=== PATIENT | male | born 1950 | race Caucasian/White ===

== ENCOUNTER → 2016-12-22 | Outpatient (CLI) | payer MEDICARE ==
[2016-12-22 09:09] LABS: HEMOGLOBIN 15.1 g/dL (14.1-18.0); LYMPH # 1.2 K/mm3 (0.7-4.5)
[2016-12-22 10:44] LABS: BILIRUBIN, INDIRECT 0.65 mg/dL (0-0.9); BUN 16 mg/dL (7-18); GFR (ESTIMATED) 85 ML/MIN (>60); PROSTATE-SPECIFIC AG SCREEEN 1.1 ng/mL (0.0-4.0)
== END ==
LOC: LAB 08:47
DX: E11.9 Type 2 diabetes mellitus without complications (principal); M15.0 Primary generalized (osteo)arthritis; N40.0 Benign prostatic hyperplasia without lower urinary tract symptoms; Z12.5 Encounter for screening for malignant neoplasm of prostate; E55.9 Vitamin D deficiency, unspecified
CPT/HCPCS: G0103

== ENCOUNTER → 2017-02-12 | Outpatient (CLI) | payer MEDICARE ==
--- NOTE | 2017-02-12 16:02 | RADIOLOGY REPORT PS360 ---
KNEE-4 OR 5 VIEWS-LT HISTORY: Left knee pain JEROMY KNEE PAIN ORDERING PHYSICIAN: Clifford Linton MD PATIENT AGE: 66 years COMPARISON: None FINDINGS: No fracture or dislocation. No lytic or blastic change. Normal mineralization. There are moderate to severe osteoarthritic changes of the medial compartment and patellofemoral joint with mild osteoarthritic change of the lateral compartment. There is decrease in the joint space with osteophyte formation. A 6 mm calcific density is present along the lateral compartment medial aspect may be due to a loose body. IMPRESSION: Moderate to severe osteoarthritic change of the medial compartment and patellofemoral joint with possible loose body laterally
--- NOTE | 2017-02-12 16:05 | RADIOLOGY REPORT PS360 ---
KNEE-4 OR 5 VIEWS-RT HISTORY: Right knee pain JEROMY KNEE PAIN ORDERING PHYSICIAN: Clifford Linton MD PATIENT AGE: 66 years COMPARISON: None FINDINGS: No fracture or dislocation. No lytic or blastic change. Normal mineralization. There are moderate to severe osteoarthritic changes of the medial compartment and patellofemoral joint with decrease in the joint space, osteosclerosis, and osteophyte formation. There is a triangular-shaped calcific density posterior to the knee on the lateral view measuring 26 x 8 mm. Possibly related to vascular calcification. No other significant findings IMPRESSION: Moderate to severe osteoarthritic change of the medial compartment and patellofemoral joint
== END ==
LOC: RAD 14:53
DX: M25.561 Pain in right knee (principal); M25.562 Pain in left knee